=== PATIENT | female | born 1970 | race Two or more races ===

== ENCOUNTER 2019-09-12 08:08 | Outpatient (CLI) | payer OTHER ==
[~2019-09-12 08:08] MED LIST: FLEXERIL5 MG; PERCOGESIC; ZIAC 5-6.25 MG1 TAB
== END 2019-09-12 08:16 | disposition home or self-care (01) ==
LOC: SONOGRAMA 08:08
DX: E04.2 Nontoxic multinodular goiter (principal)

== ENCOUNTER 2022-11-28 10:11 | Outpatient (CLI) | payer OTHER | END 2022-11-28 10:15 | disposition home or self-care (01) | LOC: SONOGRAMA 10:11 | PROVIDERS: ATTEND Pathology Anatomic Pathology & Clinical Pathology | DX: D34 Benign neoplasm of thyroid gland (principal); E04.9 Nontoxic goiter, unspecified; E04.1 Nontoxic single thyroid nodule ==